=== PATIENT | male | born 1955 | race Caucasian/White ===

== ENCOUNTER → 2018-09-08 | Outpatient (CLI) | payer OTHER | LOC: CAT 13:00 | DX: Z13.6 Encounter for screening for cardiovascular disorders (principal); I25.10 Atherosclerotic heart disease of native coronary artery without angina pectoris; E78.00 Pure hypercholesterolemia, unspecified ==

== ENCOUNTER → 2019-11-16 | Outpatient (CLI) | payer OTHER, BC | LOC: SJCVCIMAG 12:41 | PROVIDERS: ATTEND Internal Medicine Cardiovascular Disease | DX: R94.31 Abnormal electrocardiogram [ECG] [EKG] (principal); I08.8 Other rheumatic multiple valve diseases; I48.0 Paroxysmal atrial fibrillation; R93.1 Abnormal findings on diagnostic imaging of heart and coronary circulation; E78.2 Mixed hyperlipidemia; R06.00 Dyspnea, unspecified; R53.83 Other fatigue ==

== ENCOUNTER → 2019-12-02 | Outpatient (CLI) | payer OTHER, BC | LOC: SJCVC 14:39 | PROVIDERS: ATTEND Internal Medicine Cardiovascular Disease | DX: R94.31 Abnormal electrocardiogram [ECG] [EKG] (principal); I48.0 Paroxysmal atrial fibrillation; E78.2 Mixed hyperlipidemia; Z79.899 Other long term (current) drug therapy ==

== ENCOUNTER → 2019-12-24 | Outpatient (CLI) | payer OTHER, BC ==
[~2019-12-24] VITALS: Ht 177.8 cm; Wt 81.6 kg
[~2019-12-24] MED LIST: AMIODARONE HCL400 MG PO; ASA81BEC PO; FISH OIL 1,001000 M3 PO; LIPITOR10 MG PO; SUPER THERAVIT1 EACH PO; TOPROL XL25 MG PO; XARELTO20 MG PO
[2019-12-24 07:11] VITALS: BP 101/74
--- NOTE | 2019-12-24 09:31 | TEE ---
[facility] [address] [place] [address] TRANSESOPHAGEAL ECHOCARDIOGRAM Name: STANLEY GUILLEN Room #: REG BRIAN Pandya#: [id number] Admission: 12/24/19 Attend Phys: Kali Page MD, Discharge: Date of : 53 Report #: [id number] THIS REPORT FOR: cc: Bryant Reid MD, Neal A. MD Lundgren, Craig H. MD [facility] ~ APPROVED REPORT Study performed: 12/24/2019 07:59:42 EXAM: Transesophageal Echocardiogram with Doppler and cardioversion Patient Location: Out-Patient Room #: 9 Status: routine BSA: 2.00 HR: 85 bpm BP: 114/77 mmHg Rhythm: Atrial Fibrillation Other Information Study Quality: Excellent Indications Atrial Fibrillation Echo Enhancing Agent Indication: Rule out Shunt Agent(s) / Amount(s) Used: Agitated Saline 7 cc Procedure After obtaining informed consent, patient underwent transesophageal echo in the [employer]. Type of Sedation : Conscious Sedation Sedation was administered by Nurse. Sedation start time: 0800 Case end Time: 08 Sedation was achieved intravenously with: Versed (5 mg) Fentanyl (50 mcg) Transesophageal probe was inserted and advanced into esophagus without difficulty by Kali Page MD. Echo enhancement indication: R/O Septal defect. Echo enhancement agent administered: Agitated Saline The MANNY was performed without complications. Synchronized Cardioversion acheived with 120 Joules after [address] [facility] [address] [place] [address] TRANSESOPHAGEAL ECHOCARDIOGRAM Name: STANLEY GUILLEN Room #: REG [facility]#: [id number] Admission: 12/24/19 Attend Phys: Kali Page, Discharge: Date of : 53 Report #: [id number] attempt(s). Rhythm following Synchronized Cardioversion: Normal Sinus Rhythm Throughout the procedure, the blood pressure, pulse oximetry, cardiac rhythm, and rate were monitored. The patient tolerated the procedure without adverse effects. Recovery from conscious sedation was uneventful and vital signs were stable. Left Ventricle The left ventricle is normal size. There is normal LV segmental wall motion. There is normal left ventricular wall thickness. Left ventricular systolic function is at the lower limits of normal LVEF is 45-50%. Right Ventricle The right ventricle is normal size. The right ventricular systolic function is normal. Atria Left atrium is dilated. No thrombus is visualized in the left atrium or appendage. No shunting by contrast bubble injection Right atrium is dilated. Aortic Valve The aortic valve is normal in structure. No aortic regurgitation is present. There is no aortic valvular stenosis. Mitral Valve The mitral valve is normal in structure. Mild mitral regurgitation. No evidence of mitral valve stenosis. Tricuspid Valve The tricuspid valve is normal in structure. There is no tricuspid valve regurgitation noted. Pulmonic Valve The pulmonary valve is normal in structure. There is no pulmonic valvular regurgitation. Great Vessels The aortic root is normal in size. IVC is normal in size and collapses >50% with inspiration. Pericardium There is no pericardial effusion. [facility] [address] [place] [address] TRANSESOPHAGEAL ECHOCARDIOGRAM Name: STANLEY GUILLEN Room #: REG [facility].#: [id number] Admission: 12/24/19 Attend Phys: Kali Page, Discharge: Date of : 53 Report #: [id number] <Conclusion> Left ventricular systolic function is at the lower limits of normal LVEF is 45-50%. Both atria are dilated. No thrombus is visualized in the left atrium or appendage. No shunting by contrast bubble injection The aortic valve is normal in structure. No aortic regurgitation or stempsos The mitral valve is normal in structure. Mild mitral regurgitation. Normal aorta There is no pericardial effusion. Successful cardioversion of atrial fibrillation to sinus rhythm following a single 120J synchronous shock <ELECTRONICALLY SIGNED> By: Kali Page MD, FACC 12/24/19930 0 0 Kali Page MD, FACC /INF
== END | disposition home or self-care (01) ==
LOC: CATH 12-16 11:52
PROVIDERS: ATTEND Internal Medicine
DX: I48.91 Unspecified atrial fibrillation (principal); E78.5 Hyperlipidemia, unspecified; Z98.890 Other specified postprocedural states; Z79.899 Other long term (current) drug therapy; Z79.01 Long term (current) use of anticoagulants

== ENCOUNTER → 2019-12-30 | Outpatient (CLI) | payer OTHER, BC | LOC: SJCVC 14:00 | PROVIDERS: ATTEND Internal Medicine Cardiovascular Disease | DX: I48.0 Paroxysmal atrial fibrillation (principal); I49.9 Cardiac arrhythmia, unspecified; E78.5 Hyperlipidemia, unspecified; R93.1 Abnormal findings on diagnostic imaging of heart and coronary circulation; E78.2 Mixed hyperlipidemia; Z79.899 Other long term (current) drug therapy ==

== ENCOUNTER → 2020-03-20 | Outpatient (CLI) | payer OTHER, BC | LOC: SJCVCIMAG 09:28 | PROVIDERS: ATTEND Internal Medicine Cardiovascular Disease | DX: I48.0 Paroxysmal atrial fibrillation (principal); E78.5 Hyperlipidemia, unspecified; R93.1 Abnormal findings on diagnostic imaging of heart and coronary circulation; R00.1 Bradycardia, unspecified; Z79.899 Other long term (current) drug therapy ==

== ENCOUNTER → 2020-09-12 | Outpatient (CLI) | payer OTHER, BC | LOC: SJCVCIMAG 08:42 | PROVIDERS: ATTEND Internal Medicine Cardiovascular Disease | DX: I48.0 Paroxysmal atrial fibrillation (principal); E78.5 Hyperlipidemia, unspecified; Z79.899 Other long term (current) drug therapy; Z88.8 Allergy status to other drugs, medicaments and biological substances ==

== ENCOUNTER → 2020-12-05 | Outpatient (CLI) | payer OTHER, BC | LOC: SJCVC 14:06 | PROVIDERS: ATTEND Internal Medicine Cardiovascular Disease | DX: R00.1 Bradycardia, unspecified (principal); R93.1 Abnormal findings on diagnostic imaging of heart and coronary circulation; I48.0 Paroxysmal atrial fibrillation; E78.2 Mixed hyperlipidemia; Z79.82 Long term (current) use of aspirin; Z79.899 Other long term (current) drug therapy; Z88.6 Allergy status to analgesic agent ==

== ENCOUNTER → 2021-03-19 | Outpatient (CLI) | payer OTHER, BC | LOC: SJCVC 09:46 | PROVIDERS: ATTEND Internal Medicine Cardiovascular Disease | DX: R93.1 Abnormal findings on diagnostic imaging of heart and coronary circulation (principal); I48.0 Paroxysmal atrial fibrillation; E78.5 Hyperlipidemia, unspecified; R00.1 Bradycardia, unspecified; Z82.49 Family history of ischemic heart disease and other diseases of the circulatory system; Z88.8 Allergy status to other drugs, medicaments and biological substances; Z79.82 Long term (current) use of aspirin; Z79.899 Other long term (current) drug therapy ==